=== PATIENT | female | born 1945 | race Asian ===

== ENCOUNTER 2019-05-12 11:04 | Observation (INO) | payer MEDICARE, BC ==
[~2019-05-12] VITALS: Ht 149.9 cm; Wt 74.9 kg
--- NOTE | 2019-05-12 11:52 | NUR ---
PT C/O COUGH AND EARS PLUGGED X1 MONTH. SOB WHEN AMBULATING. SX GETTING PROGRESSIVELY WORSE, SO PT WENT TO FOR ASSESSMENT. STATES PT OXYGEN LOW, SENT TO ER. PT AT 90% RA WENT RESTING. CONNECTED TO MONITORING. FAMILY AT BEDSIDE. CALL LIGHT IN REACH.
[2019-05-12 11:58] LABS: BASOPHILS # (AUTO) 0.02 x10^3/uL (0-0.1); BASOPHILS % (AUTO) 0 % (0-1); EOSINOPHILS # (AUTO) 0.21 x10^3/uL (0-0.4); EOSINOPHILS % (AUTO) 4 % (1-7); LYMPHOCYTES # (AUTO) 1.49 x10^3/uL (1-3.4); LYMPHOCYTES % (AUTO) 25 % (22-44); MD NO; MEAN CORPUSCULAR HEMOGLOBIN 29.5 pg (27.0-34.8); MEAN CORPUSCULAR HGB CONC 32.6 g/dL (32.4-35.8); MEAN CORPUSCULAR VOLUME 90.2 fL (80-100); MEAN PLATELET VOLUME 8.6 fL (7.4-10.4); MONOCYTES # (AUTO) 0.54 x10^3/uL (0.2-0.8); MONOCYTES % (AUTO) 9 % (2-9); NEUTROPHILS # (AUTO) 3.64 x10^3/uL (1.8-6.8); NEUTROPHILS % (AUTO) 62 % (42-75); PLATELET COUNT 185 x10^3/uL (130-400); RED BLOOD COUNT 4.62 x10^6/uL (3.82-5.3); RED CELL DISTRIBUTION WIDTH 14.8 % (9.6-15.2)
[2019-05-12] MEDS ORDERED: SODIUM CHLORIDE FLUSH 10ML SYR IVF ONE (12:00)
[2019-05-12 12:09] LABS: ALANINE AMINOTRANSFERASE 23 U/L (12-78); ALBUMIN 3.5 g/dL (3.4-5.0); ANION GAP 6 mmol/L (5-15); CALCIUM 8.4 mg/dL (8.5-10.1); CHLORIDE 112 mmol/L (98-107); CREATININE 0.86 mg/dL (0.55-1.02)
[2019-05-12 12:13] LABS: ALKALINE PHOSPHATASE 68 U/L (45-117); BILIRUBIN,TOTAL 0.3 mg/dL (0.2-1.0); TOTAL PROTEIN 7.2 g/dL (6.4-8.2); TROPONIN I < 0.015 ng/mL (0.000-0.045)
[2019-05-12] MEDS ORDERED: OMNIPAQUE 350 MG/ML, 100ML BOTTLE ONE (13:09)
--- NOTE | 2019-05-12 13:20 | NUR ---
PT BACK FROM CTA. PT RESTING COMFORTABLY ON GURNEY. HEAVENLY.
[2019-05-12] MEDS ORDERED: LOSA50TA14 PO (14:07)
[2019-05-12] MEDS ORDERED: DOXA4TAB3 PO (14:07)
--- NOTE | 2019-05-12 14:24 | NUR ---
PT RESTING COMFORTABLY ON GURNEY. HEAVENLY.
--- NOTE | 2019-05-12 14:27 | NUR ---
REPORT GIVEN TO ADENIKE DELGADO
[2019-05-12 14:50] VITALS: BP 198/79
[2019-05-12] MEDS ORDERED: BENZONATATE 100 MG CAPSULE PO PRN (15:30)
[2019-05-12] MEDS ORDERED: hydrALAzine 20 MG/ML, 1ML IVPush PRN (15:30)
[2019-05-12] MEDS ORDERED: LORazepam 1MG TABLET PO PRN (15:30)
[2019-05-12] MEDS: ACETAMINOPHEN 325 MG TABLET PO PRN (15:55)
[2019-05-12 16:25] VITALS: BP 200/105
[2019-05-12] MEDS: ENOXAPARIN 30 MG/0.3 ML SQ SCH (16:30)
[2019-05-12] MEDS: DILTIAZEM CD 180 MG CAP.ER.24H PO SCH (16:30)
[2019-05-12 17:55] VITALS: BP 179/85
[2019-05-12 19:51] VITALS: BP 107/56
[2019-05-12 20:33] VITALS: BP 96/56
[2019-05-12] MEDS: DOXAZOSIN 2MG TABLET PO SCH (20:48)
[2019-05-12] MEDS: LOSARTAN 50MG TABLET PO SCH (20:48)
[2019-05-13 01:15] VITALS: BP 132/76
[2019-05-13] MEDS: ACETAMINOPHEN 325 MG TABLET PO PRN ×2 (01:35→12:11)
[2019-05-13] MEDS ORDERED: ALBUTEROL/IPRATROPIUM 2.5MG/0.5MG, 3 ML ONE (02:27)
[2019-05-13] MEDS ORDERED: ALBUTEROL/IPRATROPIUM 2.5MG/0.5MG, 3 ML NPPB PRN (03:30)
[2019-05-13] MEDS: ENOXAPARIN 30 MG/0.3 ML SQ SCH ×2 (05:31→17:06)
[2019-05-13] MEDS ORDERED: ASPIRIN 81 MG TABLET EC PO SCH (06:00)
[2019-05-13 07:00] VITALS: BP 131/60
[2019-05-13] MEDS: DOXAZOSIN 2MG TABLET PO SCH (08:34)
[2019-05-13] MEDS: DILTIAZEM CD 180 MG CAP.ER.24H PO SCH (08:34)
[2019-05-13] MEDS: LOSARTAN 50MG TABLET PO SCH (08:34)
[2019-05-13] MEDS ORDERED: AMOXICILLIN/CLAV 875-125MG TABLET PO SCH (11:00)
[2019-05-13] MEDS ORDERED: DILT180C53 PO (16:34)
== END 2019-05-13 18:43 | disposition home or self-care (01) ==
LOC: ED 12:58 → INTOOBSV 14:09 → EDIP 14:09 → 5SO 14:49
PROVIDERS: ADMIT Emergency Medicine; ATTEND Emergency Medicine
DX: R06.02 Shortness of breath (principal); F41.9 Anxiety disorder, unspecified; I51.7 Cardiomegaly; I10 Essential (primary) hypertension; R09.02 Hypoxemia; Z79.82 Long term (current) use of aspirin; Z79.899 Other long term (current) drug therapy
CPT/HCPCS: 36415; 71275; 80053; 83880; 84443; 84484; 85025; 93005; 93306; 93356; 94640; 96372; 96374; 99284; G0378; J0360; J1650; Q9967

== ENCOUNTER 2020-07-13 09:12 | Outpatient (CLI) | payer BC ==
[~2020-07-13 09:12] MED LIST: DILT180C53 PO; DOXA4TAB3 PO; LOSA50TA14 PO
[2020-07-13] MEDS ORDERED: OMNIPAQUE 350 MG/ML, 75ML BOTTLE ONE (10:07)
== END 2020-07-13 23:59 | disposition home or self-care (01) ==
LOC: CFH 09:12
PROVIDERS: ATTEND Family Medicine
DX: J98.11 Atelectasis (principal); K76.0 Fatty (change of) liver, not elsewhere classified; R09.02 Hypoxemia; I27.20 Pulmonary hypertension, unspecified; R91.8 Other nonspecific abnormal finding of lung field
CPT/HCPCS: 71260; 82565; Q9967

== ENCOUNTER 2020-08-24 17:50 | Inpatient (IN) | payer MEDICARE, BC ==
[~2020-08-24] VITALS: Ht 149.9 cm; Wt 75.4 kg
--- NOTE | 2020-08-24 18:34 | NUR ---
CC OF DIFFICULTY BREATHING AND "HYPER ACIDITY" X 1 MONTH. PT NOW ON 4L NC AT 96%. PT STATES SHE HAS CHRONIC ANXIETY. PT ANXIOUS IN [facility] AND STATES THAT IS WHY HER BP IS SO HIGH.
[2020-08-24 18:54] LABS: BASOPHILS % (AUTO) 1 % (0-1); EOSINOPHILS % (AUTO) 1 % (1-7); LYMPHOCYTES % (AUTO) 21 % (22-44); MEAN CORPUSCULAR HEMOGLOBIN 29.4 pg (27.0-34.8); MEAN CORPUSCULAR HGB CONC 32.6 g/dL (32.4-35.8); MEAN PLATELET VOLUME 8.8 fL (7.4-10.4); MONOCYTES % (AUTO) 11 % (2-9); NEUTROPHILS % (AUTO) 66 % (42-75); PLATELET COUNT 164 x10^3/uL (130-400); RED BLOOD COUNT 5.29 x10^6/uL (3.82-5.3); RED CELL DISTRIBUTION WIDTH 14.7 % (9.6-15.2)
[2020-08-24 18:55] LABS: MD NO
[2020-08-24 19:03] LABS: ALANINE AMINOTRANSFERASE 40 U/L (12-78); CALCIUM 9.1 mg/dL (8.5-10.1); CHLORIDE 109 mmol/L (98-107); CREATININE 0.74 mg/dL (0.55-1.02)
[2020-08-24 19:08] LABS: ALKALINE PHOSPHATASE 79 U/L (45-117); BILIRUBIN,TOTAL 0.6 mg/dL (0.2-1.0); TOTAL PROTEIN 7.8 g/dL (6.4-8.2); TROPONIN I < 0.015 ng/mL (0.000-0.045)
[2020-08-24 19:12] LABS: ANION GAP 5 mmol/L (5-15)
[2020-08-24] MEDS: LOSARTAN 50MG TABLET PO SCH (20:40)
[2020-08-24] MEDS: DOXAZOSIN 2MG TABLET PO SCH (20:40)
[2020-08-24] MEDS ORDERED: SODIUM CHLORIDE FLUSH 10ML SYR IVF PRN (21:00)
--- NOTE | 2020-08-24 22:14 | NUR ---
REPORT GIVEN TO CAMILO DELGADO
[2020-08-24] MEDS ORDERED: ONDANSETRON 2MG/ML, 2ML IVPush PRN (22:30)
[2020-08-24] MEDS ORDERED: LABETALOL 5MG/ML, 20ML IVPush PRN (22:30)
[2020-08-24] MEDS ORDERED: FUROSEMIDE 20 MG/2 ML IV ONE (22:30)
[2020-08-24] MEDS ORDERED: ACETAMINOPHEN 325 MG TABLET PO PRN (22:30)
[2020-08-24] MEDS: ENOXAPARIN 40 MG/0.4 ML SQ SCH (22:30)
[2020-08-24] MEDS ORDERED: MELATONIN 5 MG TABLET PO PRN (22:30)
[2020-08-24 23:24] VITALS: BP 166/89
[2020-08-25] MEDS ORDERED: OMNIPAQUE 350 MG/ML, 75ML BOTTLE ONE (00:42)
[2020-08-25 01:17] VITALS: BP 176/79
[2020-08-25 01:26] VITALS: BP 176/87
[2020-08-25 04:44] VITALS: BP 133/71
[2020-08-25] MEDS: ASPIRIN 81 MG TABLET EC PO SCH (05:18)
[2020-08-25 05:27] LABS: BASOPHILS % (AUTO) 1 % (0-1); EOSINOPHILS % (AUTO) 1 % (1-7); LYMPHOCYTES % (AUTO) 25 % (22-44); MEAN CORPUSCULAR HEMOGLOBIN 29.4 pg (27.0-34.8); MEAN CORPUSCULAR HGB CONC 32.4 g/dL (32.4-35.8); MEAN PLATELET VOLUME 9.1 fL (7.4-10.4); MONOCYTES % (AUTO) 13 % (2-9); NEUTROPHILS % (AUTO) 61 % (42-75); PLATELET COUNT 169 x10^3/uL (130-400); RED BLOOD COUNT 4.99 x10^6/uL (3.82-5.3); RED CELL DISTRIBUTION WIDTH 14.6 % (9.6-15.2)
[2020-08-25 05:29] LABS: MD NO
[2020-08-25 05:32] LABS: ANION GAP 4 mmol/L (5-15); CALCIUM 8.3 mg/dL (8.5-10.1); CHLORIDE 107 mmol/L (98-107)
[2020-08-25 05:36] LABS: CHOL/HDL RATIO 2.7; CHOLESTEROL, TOTAL 150 mg/dL (140-239); CREATININE 0.66 mg/dL (0.55-1.02); HDL CHOL % 37 % (28-40); HDL CHOLESTEROL (DIRECT) 55 mg/dL (40-60); LDL CHOLESTEROL,CALCULATED 77 mg/dL (54-169); LDL/HDL RATIO 1.4 (0.5-3.0); TRIGLYCERIDES 88 mg/dL (50-200); VLDL CHOLESTEROL 18 mg/dL (0-25)
[2020-08-25 07:10] VITALS: BP 126/75
[2020-08-25] MEDS: DOXAZOSIN 2MG TABLET PO SCH (09:19)
[2020-08-25] MEDS ORDERED: CALCIUM CARBONATE 500 MG TAB.CHEW PO PRN (11:30)
[2020-08-25] MEDS ORDERED: LABETALOL 5MG/ML, 20ML IVPush PRN (11:30)
[2020-08-25] MEDS: FUROSEMIDE 20 MG/2 ML IV SCH ×2 (13:18→20:15)
[2020-08-25 14:00] VITALS: BP 106/58
[2020-08-25] MEDS: POTASSIUM CHLORIDE 20 MEQ TAB.ER.PRT PO SCH (16:49)
[2020-08-25 20:15] VITALS: BP 149/77
[2020-08-25] MEDS: ENOXAPARIN 40 MG/0.4 ML SQ SCH (21:46)
[2020-08-26 02:06] VITALS: BP 142/69
[2020-08-26] MEDS: ASPIRIN 81 MG TABLET EC PO SCH (06:08)
[2020-08-26 06:48] VITALS: BP 129/80
[2020-08-26 08:22] VITALS: BP 122/71
[2020-08-26] MEDS: POTASSIUM CHLORIDE 20 MEQ TAB.ER.PRT PO SCH (08:23)
[2020-08-26] MEDS: FUROSEMIDE 20 MG/2 ML IV SCH (08:23)
[2020-08-26] MEDS: LOSARTAN 50MG TABLET PO SCH (08:25)
[2020-08-26] MEDS ORDERED: POTASSIUM CHLORIDE 20 MEQ TAB.ER.PRT PO ONE (10:30)
[2020-08-26] MEDS ORDERED: ASPI81TA45 PO (10:32)
[2020-08-26] MEDS ORDERED: FURO20TA3 PO (10:32)
[2020-08-26 13:47] VITALS: BP 114/45
[2020-08-27] MEDS ORDERED: FUROSEMIDE 20 MG TABLET PO SCH (09:00)
== END 2020-08-26 17:48 | disposition home or self-care (01) | DRG 291 ==
LOC: ED 18:20 → EDIP 22:15 → 5SO 23:01
PROVIDERS: ADMIT Family Medicine; ATTEND Internal Medicine
DX: I11.0 Hypertensive heart disease with heart failure (principal); J96.21 Acute and chronic respiratory failure with hypoxia; E66.9 Obesity, unspecified; I50.33 Acute on chronic diastolic (congestive) heart failure; G47.33 Obstructive sleep apnea (adult) (pediatric); Z53.20 Procedure and treatment not carried out because of patient's decision for unspecified reasons; R79.89 Other specified abnormal findings of blood chemistry; Z80.6 Family history of leukemia; Z68.33 Body mass index [BMI] 33.0-33.9, adult; Z82.49 Family history of ischemic heart disease and other diseases of the circulatory system; Z84.1 Family history of disorders of kidney and ureter; Z91.19 Patient's noncompliance with other medical treatment and regimen; Z90.49 Acquired absence of other specified parts of digestive tract
CPT/HCPCS: 36415; 71045; 71275; 80048; 80053; 80061; 83880; 84443; 84484; 85025; 85379; 93005; 93306; 93356; 93970; 96374; 96375; 99285; G0378; J1650; Q9967; J1940